=== PATIENT | female | born 1995 | race Caucasian/White ===

== ENCOUNTER 2020-12-11 20:14 | Emergency (ER) | payer BC ==
[~2020-12-11] VITALS: Ht 167.6 cm; Wt 108.2 kg
[~2020-12-11 20:14] MED LIST: HYDROCODON-ACE1 EAC7 PO
[2020-12-11 20:22] VITALS: Ht 167.6 cm; Wt 108.2 kg
[2020-12-11] MEDS ORDERED: DICLOFENAC SODI50 MG PO (21:14)
[2020-12-11 21:40] VITALS: BP 123/84
== END 2020-12-11 21:40 | disposition home or self-care (01) ==
LOC: D.ER 20:14
DX: T14.8XXA Other injury of unspecified body region, initial encounter (principal); S46.911A Strain of unspecified muscle, fascia and tendon at shoulder and upper arm level, right arm, initial encounter; V89.2XXA Person injured in unspecified motor-vehicle accident, traffic, initial encounter; Y93.9 Activity, unspecified; Y92.9 Unspecified place or not applicable